=== PATIENT | male | born 1945 | race Caucasian/White ===

== ENCOUNTER 2022-12-09 12:01 | Outpatient (CLI) | payer OTHER, SELFPAY ==
--- NOTE | 2022-12-09 12:15 | USCV_ITS ---
Oleg Sanchez Age: 77 Gender: M : 1945 Exam Date: 12/09/2022 12:14 Ordering Phys: Tyron Infante Technologist: WAGNER [place] [facility] [place]: CAD BP: 138 / 88 HR: 57 Rhythm: Sinus Technical Quality: Adequate MEASUREMENTS (Male / Female) Normal Values 2D ECHO LV Diastolic Diameter PLAX 5.2 cm 4.2 - 5.9 / 3.9 - 5.3 cm LV Systolic Diameter PLAX 2.3 cm IVS Diastolic Thickness 1.4 cm 0.6 - 1.0 / 0.6 - 0.9 cm IVS Systolic Thickness 1.8 cm LVPW Diastolic Thickness 1.4 cm 0.6 - 1.0 / 0.6 - 0.9 cm LVPW Systolic Thickness 2.0 cm LVOT Diameter 2.2 cm LV Ejection Fraction 2D Teich 85.8 % LV Ejection Fraction MOD 2C 58.0 % LV Ejection Fraction 2C AL 62.8 % LA Diameter 4.5 cm LA Width 4.6 cm LA Height 5.7 cm RA Width 2.6 cm RA Height 5.1 cm Aorta at Sinotubular Diameter 3.6 cm M-MODE Aortic Annulus Diameter 3.8 cm LA Ao Ratio MM 1.3 MV E Point Septal Separation 0.7 cm DOPPLER AV Peak Velocity 126.0 cm/s LVOT Peak Velocity 96.0 cm/s AV Area Cont Eq vti 3.4 cm squared AV Area Cont Eq pk 2.9 cm squared MV Peak Velocity 103.0 cm/s MV Area PHT 3.5 cm squared Mitral E to A Ratio 1.0 MV E' Velocity 43.0 cm/s Mitral E to MV E' Ratio 7.8 Mitral E to LV E' Lateral Ratio 8.0 Mitral E to LV E' Septal Ratio 7.6 TR Peak Velocity 158.3 cm/s TR Peak Gradient 10.0 mmHg Right Atrial Pressure 5.0 mmHg Pulmonary Artery Systolic Pressu 15.0 mmHg PV Peak Velocity 97.0 cm/s RV Acceleration Time 0.1 s RV Ejection Time 0.3 s RV AcT/ET 0.3 FINDINGS Left Ventricle Left ventricle is normal in size. LV systolic function is normal with EF 55 to 60%. No regional wall motion abnormalities are seen. Right Ventricle Normal in size and function Right Atrium Normal in size Left Atrium Dilated Mitral Valve Mild mitral annular calcification is seen. Possible mild mitral valve prolapse. Mild mitral regurgitation. Aortic Valve Structurally normal aortic valve. Mild to moderate aortic regurgitation. Tricuspid Valve Mild tricuspid regurgitation. Insufficient TR jet to evaluate RVSP. Pulmonic Valve Not well-visualized Pericardium Trace pulmonic regurgitation Aorta Mildly dilated aortic root IVC Not well visualized CONCLUSIONS LV systolic function is normal with EF 55 to 60%. Left atrial dilation Mild mitral regurgitation. Possible mild mitral valve prolapse. Mild to moderate aortic regurgitation Mild tricuspid regurgitation Trace pulmonic regurgitation Mildly dilated aortic root No comparison studies are available. Kennedy Rivas MD (Electronically Signed) Final Date: 11 December 2022 10:23 S
== END 2022-12-09 12:02 | disposition home or self-care (01) ==
LOC: RAD 12:01
PROVIDERS: PCP Nurse Practitioner Family; Visit Provider Chiropractor
DX: I25.10 Atherosclerotic heart disease of native coronary artery without angina pectoris (principal); I08.3 Combined rheumatic disorders of mitral, aortic and tricuspid valves; I77.810 Thoracic aortic ectasia
CPT/HCPCS: 93306